=== PATIENT | male | born 1990 | race African-American/Black ===

== ENCOUNTER 2017-05-24 08:52 | Day surgery (SDC) | payer MEDICARE, OTHER ==
[2017-05-24] MEDS ORDERED: ONDANSETRON HCL INJ/PF 4 MG/2 ML SDV ONE (08:54)
[2017-05-24] MEDS ORDERED: NALOXONE HCL INJ/PF 0.4 MG/1 ML SDV ONE (08:54)
[2017-05-24] MEDS ORDERED: DIPHENHYDRAMINE HCL 50 MG/ML VIAL ONE (08:54)
[2017-05-24] MEDS ORDERED: MIDAZOLAM 2 MG/2 ML INJ ONE (08:55)
[2017-05-24] MEDS ORDERED: GLUCAGON,HUMAN RECOMB 1 MG INJ ONE (08:55)
[2017-05-24] MEDS ORDERED: EPINEPHRINE INJ 1 MG/10 ML DISP.SYRIN ONE (08:55)
[2017-05-24] MEDS ORDERED: FLUMAZENIL INJ 0.5 MG/5 ML VIAL IV ONE (08:55)
[2017-05-24] MEDS ORDERED: FENTANYL CITRATE INJ/PF 100 MCG/2 ML AMPUL ONE (08:55)
[2017-05-24] MEDS: MIDAZOLAM 2 MG/2 ML INJ ONE ×3 (09:45→09:53)
--- NOTE | 2017-05-24 10:06 | Operative Report ---
Operative Report DATE OF SURGERY: 05/24/17 Operative Report: The risks benefits and alternatives of the procedure explained to the patient in detail and informed consent is obtained.A GIF Olympus video scope was inserted into the patient's mouth and hypopharynx, the esophagus is identified intubated and insufflated, the scope was then advanced through the esophagus stomach and duodenum, retroflexion maneuver is done, the esophagus stomach and first and second portions of the duodenum examined PREOPERATIVE DIAGNOSIS: Epigastric pain POSTOPERATIVE DIAGNOSIS: Gastritis, hiatal hernia OPERATION: EGD with biopsy SURGEON: ABHISHEK DUMONT ANESTHESIA: Moderate Sedation - 50 mg of Benadryl, 6 mg of Versed, 100 mcg of fentanyl. Conscious sedation monitoring time 30 minutes. TISSUE REMOVED OR ALTERED: Gastric mucosal specimen obtained to rule out Helicobacter pylori COMPLICATIONS: None. ESTIMATED BLOOD LOSS: None. INTRAOPERATIVE FINDINGS: As noted above. PROCEDURE: Patient tolerated the procedure well. No immediate postprocedure complications are noted. Patient discharged in good condition. Discharge date 05/24/2017. Discharge diet: Regular. Discharge activity: Regular. 2-3 week follow-up to discuss findings. We will wait on biopsies. Patient is instructed to call the office or proceed to the emergency room should there be any further problems or questions.
[2017-05-24 11:37] VITALS: BP 104/59
== END 2017-05-24 11:38 | disposition home or self-care (01) ==
LOC: END 08:52
PROVIDERS: ATTEND Internal Medicine Gastroenterology
PROC: 0DB68ZX Excision of Stomach, Via Natural or Artificial Opening Endoscopic, Diagnostic (ICD-10-PCS; principal; 2017-05-24 09:30)
DX: K29.50 Unspecified chronic gastritis without bleeding (principal); K44.9 Diaphragmatic hernia without obstruction or gangrene; G47.33 Obstructive sleep apnea (adult) (pediatric); F32.9 Major depressive disorder, single episode, unspecified; Z87.820 Personal history of traumatic brain injury; Z79.899 Other long term (current) drug therapy; Z79.1 Long term (current) use of non-steroidal anti-inflammatories (NSAID); F41.9 Anxiety disorder, unspecified
CPT/HCPCS: 43239; 88305 ×2; J2250; J1200; J3010; J0171; J1610; J2310; J2405; J3490

== ENCOUNTER → 2017-06-03 | Outpatient (CLI) | payer MEDICARE, OTHER ==
--- NOTE | 2017-06-03 13:56 | RADIOLOGY REPORT (SQ) ---
EXAM DESCRIPTION: U/S ABDOMEN LIMITED W/O DOP COMPLETED DATE/TIME: 06/03/2017 10:44 am REASON FOR STUDY: NAUSEA WITH VOMITING R11.2 NAUSEA WITH VOMITING, UNSPECIFIED COMPARISON: None. TECHNIQUE: Dynamic and static grayscale images acquired of the abdomen and recorded on PACS. Additio nal selected color Doppler and spectral images recorded. LIMITATIONS: None. FINDINGS: PANCREAS: No masses. Visualized pancreatic duct normal caliber. LIVER: No masses. Echotexture normal. LIVER VASCULATURE: Normal directional flow of the main portal vein and hepatic veins. GALLBLADDER: No stones. Normal wall thickness. No pericholecystic fluid. ULTRASOUND-DETECTED RALPH'S SIGN: Negative. INTRAHEPATIC DUCTS AND COMMON DUCT: CBD and intrahepatic ducts normal caliber. No filling defects. INFERIOR VENA CAVA: Normal flow. AORTA: No aneurysm. RIGHT KIDNEY: Normal size. Normal echogenicity. No solid or suspicious masses. No hydronephrosis. No calcifications. PERITONEAL AND RIGHT PLEURAL SPACE: No ascites or effusions. OTHER: No other significant findings. IMPRESSION: NORMAL RIGHT UPPER QUADRANT ULTRASOUND. TECHNICAL DOCUMENTATION: JOB ID: [id number] [employer] All Rights Reserved
== END ==
LOC: RAD 09:22
PROVIDERS: ATTEND Internal Medicine Gastroenterology
DX: R11.2 Nausea with vomiting, unspecified (principal)
CPT/HCPCS: 76705

== ENCOUNTER → 2017-06-12 | Outpatient (CLI) | payer MEDICARE, OTHER ==
--- NOTE | 2017-06-12 11:39 | RADIOLOGY REPORT (SQ) ---
EXAM DESCRIPTION: NM HIDA SCAN WITH CCK COMPLETED DATE/TIME: 06/12/2017 11:14 am REASON FOR STUDY: NAUSEA WITH VOMITING R11.2 NAUSEA WITH VOMITING, UNSPECIFIED COMPARISON: None. RADIONUCLIDE AND DOSE: DOSAGE RADIONUCLIDE: 5 millicuries Tc99m Mebrofenin. DOSAGE CCK: 1.7 micrograms. DOSAGE MORPHINE: Not required. The route of agent administration: Intravenous TECHNIQUE: Serial imaging right upper quadrant up to 60 minutes following injection of radionuclide. CCK injected after gallbladder visualized. LIMITATIONS: None. FINDINGS: LIVER: Normal visualization without areas of photopenia. INTRAHEPATIC BILE DUCTS: Normal size and no delay in visualization. COMMON BILE DUCT: Normal without dilatation. Normal spontaneous emptying into the small bowel. GALLBLADDER: Normal visualization. Calculated ejection fraction of 5%. Normal range is greater abigail n 35%. PHYSICAL RESPONSE: Patients presenting complaint was not reproduced. OTHER: No other significant finding. IMPRESSION: Gallbladder ejection fraction was 5% where 35% or greater is considered normal. There i s no obstruction of the cystic duct or common bile duct. TECHNICAL DOCUMENTATION: JOB ID: [id number] [employer]- All Rights Reserved
== END ==
LOC: RAD 08:57
PROVIDERS: ATTEND Internal Medicine Gastroenterology
DX: R11.2 Nausea with vomiting, unspecified (principal)
CPT/HCPCS: 78227; A9537; Q9969; J2805

== ENCOUNTER 2017-12-09 11:15 | Day surgery (SDC) | payer MEDICARE, OTHER ==
[~2017-12-09 11:15] MED LIST: PROPOFOL INJ 200 MG/20 ML VIAL IV ONE
[2017-12-09] MEDS ORDERED: PROPOFOL INJ 200 MG/20 ML VIAL IV ONE (12:09)
[2017-12-09 13:29] VITALS: BP 110/59
--- NOTE | 2017-12-09 13:56 | Operative Report ---
Operative Report DATE OF SURGERY: 12/09/17 Operative Report: The risks, benefits and alternatives of the procedure including risks of bleeding, perforation requiring surgery are explained to the patient detail and informed consent is obtained. Patient is taken back to the endoscopy suite and placed in a left, lateral decubital position. Timeout was called. Propofol medications administered. A rectal examination is done which did not reveal any masses, tears or fissures. An Olympus videoscope was inserted the patient' s rectum. The scope was then carefully advanced all the way to the cecum. The cecum was identified by the usual anatomical landmarks including the ileocecal valve as well as the appendiceal office. Photodocumentation is obtained. The scope was then sequentially pulled back via the various segments of the colon including the ascending colon, hepatic flexure, transverse colon, splenic flexure, descending colon went to the rectosigmoid portions of the colon. Retroflexion maneuvers performed. PREOPERATIVE DIAGNOSIS: Weight loss, nausea rule out Crohn's disease POSTOPERATIVE DIAGNOSIS: Terminal ileitis status post biopsy rule out Crohn's disease OPERATION: Colonoscopy with biopsy SURGEON: ABHISHEK DUMONT ANESTHESIA: LMAC TISSUE REMOVED OR ALTERED: Terminal ileal specimens obtained rule out Crohn's disease COMPLICATIONS: None. ESTIMATED BLOOD LOSS: None. INTRAOPERATIVE FINDINGS: As noted above. PROCEDURE: Patient tolerated procedure well. No immediate postprocedure complications are noted. Patient discharged in good condition. Discharge date 12/09/2017. Discharge diet: Regular. Discharge activity: Regular. 2-3 week follow-up to discuss findings. Patient is instructed call the office or proceed to the emergency room should there be any further problems or questions. We will await pathology.
== END 2017-12-09 13:30 | disposition home or self-care (01) ==
LOC: END 11:15
PROVIDERS: ATTEND Internal Medicine Gastroenterology
PROC: 0DBB8ZX Excision of Ileum, Via Natural or Artificial Opening Endoscopic, Diagnostic (ICD-10-PCS; principal; 2017-12-09 14:30)
DX: K52.9 Noninfective gastroenteritis and colitis, unspecified (principal); J44.9 Chronic obstructive pulmonary disease, unspecified; R63.4 Abnormal weight loss; F41.9 Anxiety disorder, unspecified; F32.9 Major depressive disorder, single episode, unspecified; R51 Headache; Z68.23 Body mass index [BMI] 23.0-23.9, adult; Z79.899 Other long term (current) drug therapy; Z79.1 Long term (current) use of non-steroidal anti-inflammatories (NSAID); Z87.820 Personal history of traumatic brain injury
CPT/HCPCS: 45380; 88305 ×2; J2704; 811